=== PATIENT | female | born 1955 | race Caucasian/White ===

== ENCOUNTER 2025-03-22 06:27 | Day surgery (SDC) | payer MEDICARE, OTHER ==
[2025-03-22] MEDS ORDERED: Ondansetron 4 MG/2 ML SDV IVPUSH PRN (06:30)
[2025-03-22] MEDS: Moxifloxacin 0.5% Ophth Soln 3 ML Bottle EYELF ONE (07:03)
[2025-03-22] MEDS: Povidone-Iodine 5% Sterile Ophth Soln 30 ML Bottle EYELF ONE ×2 (07:04→08:30)
[2025-03-22] MEDS: Phenylephrine 10% Ophth Soln 5 ML Bot EYELF PRN (07:05)
[2025-03-22] MEDS: Timolol Maleate 0.5% Ophth Soln 5 ML Bottle EYELF ONE (07:05)
[2025-03-22] MEDS: Cataract Ophth Solution EYELF ONE (07:06)
[2025-03-22] MEDS: Apraclonidine 0.5% Ophth Soln 5 ML Bot EYELF ONE (08:30)
[2025-03-22] MEDS: Diclofenac Sodium 0.1% Ophth Soln 5 ML Bottle EYELF ONE (08:30)
[2025-03-22] MEDS: Acetylcholine 20 MG/2 ML Intraocular Inj Kit EYELF ONE (08:30)
[2025-03-22] MEDS: Dexamethasone/Neomycin/Polymyxin B Ophth Oint 3.5 GM Tube EYELF ONE (08:30)
[2025-03-22] MEDS ORDERED: Dexamethasone 4 MG/ML SDV ONE (09:50)
== END 2025-03-22 09:15 | disposition home or self-care (01) ==
LOC: DL.SDS 06:27
PROVIDERS: ATTEND Ophthalmology
DX: E11.36 Type 2 diabetes mellitus with diabetic cataract (principal); H25.813 Combined forms of age-related cataract, bilateral; I10 Essential (primary) hypertension; E78.5 Hyperlipidemia, unspecified; Z79.899 Other long term (current) drug therapy
CPT/HCPCS: A9270-GY; J2003; J3373; J3490; V2632